=== PATIENT | female | born 1965 | race Caucasian/White ===

== ENCOUNTER 2017-01-26 09:59 | Emergency (ER) | payer BC, MEDICARE ==
--- NOTE | 2017-01-26 10:55 | EDM.PDOC ---
ED HPI GENERAL MEDICAL PROBLEM - General Chief Complaint: Cardiovascular Problem Stated Complaint: FROM CLINIC Time Seen by Provider: 01/26/17 10:47 Source of Information: Reports: Patient History Limitations: Reports: No Limitations - History of Present Illness INITIAL COMMENTS - FREE TEXT/NARRATIVE: Patient is a 51-year-old female who presents to the ER today from [facility] with complaints of left anterior chest pain and elevated blood pressure. She originally made an appointment to be seen in the clinic, but was subsequently sent to the ER for cardiac work up. She reports that for the past week and a half she has had pain in her anterior left chest radiating to her under arm. She describes the pain as tender. Denies any injury to affected area. Denies any shortness of breath. She reports that she does take her blood pressure at home and typically runs in the 170's/90's. She reports she has been taking her medications as prescribed and took her blood pressure medications this morning. She does report she is a high strung person and has had increased stress in her life. She reports she has been feeling very anxious as well. Additionally, she complains of a headache. She does report a history of migraines in the past. She states she has had a headache for the past week and a half as well. She attributes this to her increased stress. Denies any visual changes, weakness, numbness, or tingling. Chest Pain Score (Numeric/FACES): 4 - Related Data Allergies Allergy/AdvReac Type Severity Reaction Status Date / Time Penicillins Allergy Cannot Verified 01/26/17 10:25 Remember Home Meds: Home Meds Temazepam [Restoril] 15 mg PO BEDTIME PRN 06/15/15 [History] Zolpidem [Ambien] 10 mg PO BEDTIME PRN 06/15/15 [History] tiZANidine [Zanaflex] 4 mg PO Q8HR PRN 06/15/15 [History] Acetaminophen [Tylenol] 650 mg PO Q4HR PRN 04/27/16 [History] Benztropine Mesylate 0.5 mg PO DAILY PRN 04/27/16 [History] LORazepam [Ativan] 0.5 mg PO DAILY PRN 04/27/16 [History] Losartan [Cozaar] 25 mg PO DAILY 04/27/16 [History] Potassium Chloride 20 meq PO DAILY 04/27/16 [History] Rosuvastatin Calcium [Crestor] 40 mg PO BEDTIME 04/27/16 [History] Thiothixene 10 mg PO DAILY PRN 04/27/16 [History] amLODIPine [Norvasc] 10 mg PO DAILY 04/27/16 [History] Acetaminophen/HYDROcodone [[place] 325-5 MG] 1 tab PO Q4HR PRN 01/26/17 [History] Diclofenac Sodium [Voltaren 1% Gel] 100 gm TOP TID PRN 01/26/17 [History] Labetalol HCl [Labetalol] 300 mg PO TID 01/26/17 [History] Lidocaine 2% [Xylocaine 2% Jelly] 1 applic TOP TID 01/26/17 [History] Omeprazole 20 mg PO DAILY 01/26/17 [History] Psyllium Husk [Metamucil] 1 tbsp PO DAILY 01/26/17 [History] hydrALAZINE [Apresoline] 50 mg PO 1200 01/26/17 [History] Past Medical History HEENT History: Reports: None, Other (See Below) Other HEENT History: READING GLASSES Cardiovascular History: Reports: High Cholesterol, Hypertension Respiratory History: Reports: None Gastrointestinal History: Reports: None Genitourinary History: Reports: Chronic Renal Insuffiency [employer]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: , 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 Musculoskeletal History: Reports: Back Pain, Chronic Neurological History: Reports: Migraines Psychiatric History: Reports: Anxiety, Bipolar, Depression, Suicide Attempt Endocrine/Metabolic History: Reports: None Hematologic History: Reports: None Immunologic History: Reports: None Oncologic (Cancer) History: Reports: None Dermatologic History: Reports: None - Infectious Disease History Infectious Disease History: Reports: Chicken Pox, Mumps - Past Surgical History Female Surgical History: Reports: Breast Biopsy, Section, Hysterectomy, Salpingo-Oophorectomy Oncologic Surgical History: Reports: Biopsy of Breast Social & Family History - Family History Family Medical History: Noncontributory HEENT: Reports: Cataract Cardiac: Reports: CT Respiratory: Reports: Asthma GI: Reports: None : Reports: Dialysis OBGYN: Reports: None Musculoskeletal: Reports: Arthritis, Osteoporosis Neurological: Reports: CVA Psychiatric: Reports: Bipolar, Depression, Hallucinations Endocrine/Metabolic: Reports: None Hematologic: Reports: None Immunologic: Reports: None Dermatologic: Reports: None Oncologic: Reports: None - Tobacco Use Smoking Status *Q: Never Smoker - Caffeine Use Caffeine Use: Reports: Soda - Recreational Drug Use Recreational Drug Use: No Drug Use in Last 12 Months: No ED ROS GENERAL - Review of Systems Review Of Systems: ROS reveals no pertinent complaints other than HPI. ED EXAM, GENERAL - Physical Exam Exam: See Below Exam Limited By: No Limitations General Appearance: Alert, WD/WN, Anxious, Mild Distress Head: Atraumatic, Normocephalic Neck: Normal Inspection, Supple, Non-Tender, Full Range of Motion Respiratory/Chest: No Respiratory Distress, Lungs Clear, Normal Breath Sounds, No Accessory Muscle Use, Other (tenderness to left anterior chest) Cardiovascular: Normal Peripheral Pulses, Regular Rate, Rhythm, No Edema, No Gallop, No JVD, No Murmur, No Rub Peripheral Pulses: 2+: Dorsalis Pedis (L), Dorsalis Pedis (R) GI/Abdominal: Normal Bowel Sounds, Soft, Non-Tender, No Organomegaly, No Distention, No Abnormal Bruit, No Mass (Female) Exam: Deferred Rectal (Female) Exam: Deferred Back Exam: Normal Inspection, Full Range of Motion, NT Extremities: Normal Inspection, Normal Range of Motion, Non-Tender, Normal Capillary Refill, No Pedal Edema Neurological: Alert, Oriented, CN II-XII Intact, Normal Cognition, Normal Gait, Normal Reflexes, No Motor/Sensory Deficits Psychiatric: Anxious, Tearful Skin Exam: Warm, Dry, Intact, Normal Color, No Rash Lymphatic: No Adenopathy Course - Vital Signs Last Recorded V/S: Last Vital Signs Temp 36.2 C 01/26/17 10:28 Pulse 95 01/26/17 13:27 Resp 20 01/26/17 10:28 BP 142/102 H 01/26/17 13:27 Pulse Ox 98 01/26/17 10:28 - Orders/Labs/Meds Orders: Active Orders 24 hr Category Date Time Status EKG 12 Lead [EKG Documentation Completion] [RC] STAT Care 01/26/17 10:10 Active CULTURE URINE [RM] Stat Lab 01/26/17 11:20 Received Labs: Laboratory Tests 01/26/17 01/26/17 01/26/17 Range/Units 10:20 10:20 10:20 WBC 6.8 (5.0-10.0) 10^3/uL RBC 4.70 (4.2-5.4) 10^6/uL Hgb 15.2 (12.0-16.0) g/dL Hct 44.2 (37.0-47.0) % MCV 94.0 (80-100) fL MCH 32.3 (27.0-34.0) pg MCHC 34.4 (33.0-35.0) g/dL Plt Count 217 (150-450) 10^3/uL Neut % (Auto) 67.5 (42.2-75.2) % Lymph % (Auto) 22.5 (20.5-50.1) % [place] % (Auto) 8.7 H (2-8) % Eos % (Auto) 1.0 (1.0-3.0) % Baso % (Auto) 0.3 (0.0-1.0) % Sodium 139 (135-145) mmol/L Potassium 3.5 L (3.6-5.0) mmol/L Chloride 105 (101-111) mmol/L Carbon Dioxide 23.0 (21.0-31.0) mmol/L Anion Gap 14.5 BUN 11 (7-18) mg/dL Creatinine 1.0 (0.6-1.3) mg/dL Est Cr Clr Drug Dosing 55.06 mL/min Estimated GFR (MDRD) 58 BUN/Creatinine Ratio 11.00 Glucose 97 (74-105) mg/dL Calcium 8.9 (8.4-10.2) mg/dl Total Bilirubin 0.6 (0.2-1.0) mg/dL AST 24 (10-42) IU/L ALT 28 (10-60) IU/L Alkaline Phosphatase 38 L (42-121) IU/L Troponin I (0.00-0.02) ng/ml Total Protein 7.8 (6.7-8.2) g/dl Albumin 4.1 (3.2-5.5) g/dl Globulin 3.7 Albumin/Globulin Ratio 1.11 TSH, Ultra Sensitive 3.55 (0.45-5.33) uIu/mL Urine Color (YELLOW) Urine Appearance (CLEAR) Urine pH (5.0-9.0) Ur Specific White (1.005-1.030) Urine Protein (NEGATIVE) Urine Glucose (UA) (NEGATIVE) Urine Ketones (NEGATIVE) Urine Occult Blood (NEGATIVE) Urine Nitrite (NEGATIVE) Urine Bilirubin (NEGATIVE) Urine Urobilinogen (0.2-1.0) mg/dL Ur Leukocyte Esterase (NEGATIVE) Urine RBC /HPF Urine WBC (0-5/HPF) /HPF Ur Epithelial Cells /HPF Urine Bacteria (0-FEW/HPF) /HPF Urine Mucus /LPF Urine Opiates Screen (NEGATIVE) Ur Oxycodone Screen (NEGATIVE) Urine Methadone Screen (NEGATIVE) Ur Barbiturates Screen (NEGATIVE) U Tricyclic Antidepress (NEGATIVE) Ur Phencyclidine Scrn (NEGATIVE) Ur Amphetamine Screen (NEGATIVE) U Methamphetamines Scrn (NEGATIVE) Urine MDMA Screen (NEGATIVE) U Benzodiazepines Scrn (NEGATIVE) Urine Cocaine Screen (NEGATIVE) U Marijuana (THC) Screen (NEGATIVE) 01/26/17 01/26/17 01/26/17 Range/Units 10:20 11:20 11:20 WBC (5.0-10.0) 10^3/uL RBC (4.2-5.4) 10^6/uL Hgb (12.0-16.0) g/dL Hct (37.0-47.0) % MCV (80-100) fL MCH (27.0-34.0) pg MCHC (33.0-35.0) g/dL Plt Count (150-450) 10^3/uL Neut % (Auto) (42.2-75.2) % Lymph % (Auto) (20.5-50.1) % [place] % (Auto) (2-8) % Eos % (Auto) (1.0-3.0) % Baso % (Auto) (0.0-1.0) % Sodium (135-145) mmol/L Potassium (3.6-5.0) mmol/L Chloride (101-111) mmol/L Carbon Dioxide (21.0-31.0) mmol/L Anion Gap BUN (7-18) mg/dL Creatinine (0.6-1.3) mg/dL Est Cr Clr Drug Dosing mL/min Estimated GFR (MDRD) BUN/Creatinine Ratio Glucose (74-105) mg/dL Calcium (8.4-10.2) mg/dl Total Bilirubin (0.2-1.0) mg/dL AST (10-42) IU/L ALT (10-60) IU/L Alkaline Phosphatase (42-121) IU/L Troponin I < 0.02 (0.00-0.02) ng/ml Total Protein (6.7-8.2) g/dl Albumin (3.2-5.5) g/dl Globulin Albumin/Globulin Ratio TSH, Ultra Sensitive (0.45-5.33) uIu/mL Urine Color Yellow (YELLOW) Urine Appearance Turbid (CLEAR) Urine pH 6.0 (5.0-9.0) Ur Specific White 1.020 (1.005-1.030) Urine Protein Negative (NEGATIVE) Urine Glucose (UA) Negative (NEGATIVE) Urine Ketones Negative (NEGATIVE) Urine Occult Blood Negative (NEGATIVE) Urine Nitrite Negative (NEGATIVE) Urine Bilirubin Negative (NEGATIVE) Urine Urobilinogen 0.2 (0.2-1.0) mg/dL Ur Leukocyte Esterase Trace H (NEGATIVE) Urine RBC 0-5 /HPF Urine WBC 0-5 (0-5/HPF) /HPF Ur Epithelial Cells Many H /HPF Urine Bacteria Many H (0-FEW/HPF) /HPF Urine Mucus Many H /LPF Urine Opiates Screen Positive H (NEGATIVE) Ur Oxycodone Screen Negative (NEGATIVE) Urine Methadone Screen Negative (NEGATIVE) Ur Barbiturates Screen Negative (NEGATIVE) U Tricyclic Antidepress Negative (NEGATIVE) Ur Phencyclidine Scrn Negative (NEGATIVE) Ur Amphetamine Screen Negative (NEGATIVE) U Methamphetamines Scrn Negative (NEGATIVE) Urine MDMA Screen Negative (NEGATIVE) U Benzodiazepines Scrn Positive H (NEGATIVE) Urine Cocaine Screen Negative (NEGATIVE) U Marijuana (THC) Screen Negative (NEGATIVE) Meds: Medications Discontinued Medications Generic Name Dose Route Start Last Admin Trade Name Freq PRN Reason Stop Dose Admin Hydralazine HCl 10 mg 01/26/17 10:59 01/26/17 11:06 Apresoline IVPUSH 01/26/17 11:00 10 mg ONETIME ONE Administration Ketorolac Tromethamine 30 mg 01/26/17 13:00 01/26/17 13:05 Toradol IVPUSH 01/26/17 13:01 Not Given ONETIME ONE Ketorolac Tromethamine 30 mg 01/26/17 13:35 Toradol IVPUSH 01/26/17 13:36 ONETIME ONE Lorazepam 0.5 mg 01/26/17 12:48 01/26/17 13:05 Ativan IVPUSH 01/26/17 12:49 0.5 mg ONETIME ONE Administration Departure - Departure Time of Disposition: 13:48 Disposition: Home, Self-Care 01 Condition: Good Clinical Impression: Hypertensive urgency, Headache, tension-type, Chest pain, non-cardiac Instructions: Hypertension, [id number], Nonspecific Chest Pain, Panic Attacks Forms: ED Department Discharge Care Plan Goals: Discussed labs, xray, and EKG findings with patient. Administered 10 mg hydralazine IV without resolution in elevated blood pressure. Administered 0.5 mg IV Ativan. BP good after. Discussed following up with her primary care provider to address treatment of anxiety and hypertension. Continue current antihypertensive and antianxiety medications as prescribed. Administered 30 mg IV Toradol with improvement in headache. Script sent for Macrobid 100 mg PO BID x 5 days for UTI. Return to clinic if symptoms worsen or do not improve. - My Orders Last 24 Hours: My Active Orders 01/26/17 10:10 EKG 12 Lead [EKG Documentation Completion] [RC] STAT 01/26/17 11:20 CULTURE URINE [RM] Stat - Assessment/Plan Last 24 Hours: My Active Orders 01/26/17 10:10 EKG 12 Lead [EKG Documentation Completion] [RC] STAT 01/26/17 11:20 CULTURE URINE [RM] Stat
[2017-01-26] MEDS ORDERED: hydrALAZINE 20 MG/ML SDV IVPUSH ONE (10:59)
[2017-01-26] MEDS ORDERED: LORazepam 2 MG/ML Syringe IVPUSH ONE (12:48)
[2017-01-26] MEDS ORDERED: Ketorolac 30 MG/ML SDV IVPUSH ONE ×2 (13:00→13:35)
[2017-01-26 13:28] VITALS: BP 142/102
--- NOTE | 2017-01-27 15:11 | EKG ---
01/26/2017 - ALEJANDRA BAKER I reviewed the EKG and agree with the machine's reading. [facility] /[id number]
== END 2017-01-26 14:22 | disposition home or self-care (01) ==
LOC: DL.ED 09:59
DX: I16.0 Hypertensive urgency (principal); I12.9 Hypertensive chronic kidney disease with stage 1 through stage 4 chronic kidney disease, or unspecified chronic kidney disease; N18.9 Chronic kidney disease, unspecified; G44.209 Tension-type headache, unspecified, not intractable; R07.89 Other chest pain; Z88.0 Allergy status to penicillin; Z79.899 Other long term (current) drug therapy; E78.00 Pure hypercholesterolemia, unspecified; F41.9 Anxiety disorder, unspecified; F32.9 Major depressive disorder, single episode, unspecified
CPT/HCPCS: 36415; 71010; 80053; 80305; 81001; 84443; 84484; 85025; 87086; 93005; 96374; 96375; 99284; J0360; J1885; J2060; 93010

== ENCOUNTER 2017-09-25 11:45 | Emergency (ER) | payer MEDICARE ==
--- NOTE | 2017-09-25 12:59 | EDM.PDOC ---
ED HPI GENERAL MEDICAL PROBLEM - General Chief Complaint: Chest Pain Stated Complaint: [id number] HIGH BP SENT FROM CLINIC Time Seen by Provider: 09/25/17 12:20 Source of Information: Reports: Patient, Family, RN, RN Notes Reviewed History Limitations: Reports: No Limitations - History of Present Illness INITIAL COMMENTS - FREE TEXT/NARRATIVE: Patient presents to ER from [facility] with high blood pressure. She has history of hypertension. New blood pressure machine reads high, had clinic check it and sent her to the ER. States taking meds as prescribed Onset: Gradual Duration: Getting Worse Severity: Moderate Improves with: Reports: None Worsens with: Reports: None Associated Symptoms: Reports: No Other Symptoms Right Pain Score (Numeric/FACES): 7 - Related Data Allergies Allergy/AdvReac Type Severity Reaction Status Date / Time Penicillins Allergy Cannot Verified 09/25/17 12:14 Remember Home Meds: Home Meds Temazepam [Restoril] 15 mg PO BEDTIME PRN 06/15/15 [History] Zolpidem [Ambien] 10 mg PO BEDTIME PRN 06/15/15 [History] tiZANidine [Zanaflex] 4 mg PO Q8HR PRN 06/15/15 [History] Acetaminophen [Tylenol] 650 mg PO Q6H PRN 04/27/16 [History] Benztropine Mesylate 0.5 - 1 mg PO DAILY PRN 04/27/16 [History] LORazepam [Ativan] 0.5 mg PO Q6H PRN 04/27/16 [History] Losartan [Cozaar] 50 mg PO BID 04/27/16 [History] Thiothixene 10 mg PO DAILY PRN 04/27/16 [History] amLODIPine [Norvasc] 10 mg PO DAILY 04/27/16 [History] Acetaminophen/HYDROcodone [[place] 325-5 MG] 1 tab PO Q4HR PRN 01/26/17 [History] Diclofenac Sodium [Voltaren 1% Gel] 100 gm TOP TID PRN 01/26/17 [History] Labetalol HCl [Labetalol] 300 mg PO BID 01/26/17 [History] Lidocaine 2% [Xylocaine 2% Jelly] 1 applic TOP TID 01/26/17 [History] Omeprazole 20 mg PO DAILY 01/26/17 [History] Psyllium Husk [Metamucil] 1 tbsp PO DAILY 01/26/17 [History] hydrALAZINE [Apresoline] 50 mg PO 1200 01/26/17 [History] Carvedilol [Coreg] 37.5 mg PO BID 09/25/17 [History] Chlorthalidone 50 mg PO BID 09/25/17 [History] Diclofenac Sodium [Voltaren] 75 mg PO DAILY 09/25/17 [History] Hydrochlorothiazide 50 mg PO BID 09/25/17 [History] Past Medical History HEENT History: Reports: None, Other (See Below) Other HEENT History: READING GLASSES Cardiovascular History: Reports: High Cholesterol, Hypertension Respiratory History: Reports: None Gastrointestinal History: Reports: None Genitourinary History: Reports: Chronic Renal Insuffiency 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: , 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 Musculoskeletal History: Reports: Back Pain, Chronic Neurological History: Reports: Migraines Psychiatric History: Reports: Anxiety, Bipolar, Depression, Suicide Attempt Endocrine/Metabolic History: Reports: None Hematologic History: Reports: None Immunologic History: Reports: None Oncologic (Cancer) History: Reports: None Dermatologic History: Reports: None - Infectious Disease History Infectious Disease History: Reports: Chicken Pox, Mumps - Past Surgical History Female Surgical History: Reports: Breast Biopsy, Section, Hysterectomy, Salpingo-Oophorectomy Oncologic Surgical History: Reports: Biopsy of Breast Social & Family History - Family History Family Medical History: Noncontributory HEENT: Reports: Cataract Cardiac: Reports: [place] Respiratory: Reports: Asthma GI: Reports: None : Reports: Dialysis OBGYN: Reports: None Musculoskeletal: Reports: Arthritis, Osteoporosis Neurological: Reports: CVA Psychiatric: Reports: Bipolar, Depression, Hallucinations Endocrine/Metabolic: Reports: None Hematologic: Reports: None Immunologic: Reports: None Dermatologic: Reports: None Oncologic: Reports: None - Caffeine Use Caffeine Use: Reports: Soda ED ROS GENERAL - Review of Systems Review Of Systems: ROS reveals no pertinent complaints other than HPI. ED EXAM, GENERAL - Physical Exam Exam: See Below Exam Limited By: No Limitations General Appearance: Alert, WD/WN, No Apparent Distress Eye Exam: Bilateral Eye: Normal Inspection Ears: Normal External Exam, Normal Canal, Hearing Grossly Normal, Normal TMs Nose: Normal Inspection, Normal Mucosa, No Blood Throat/Mouth: Normal Inspection, Normal Lips, Normal Teeth, Normal Gums, Normal Oropharynx, Normal Voice, No Airway Compromise Head: Atraumatic, Normocephalic Neck: Normal Inspection, Supple, Non-Tender, Full Range of Motion Respiratory/Chest: No Respiratory Distress, Lungs Clear, Normal Breath Sounds, No Accessory Muscle Use, Chest Non-Tender Cardiovascular: Normal Peripheral Pulses, Regular Rate, Rhythm, No Edema, No Gallop, No JVD, No Murmur, No Rub GI/Abdominal: Normal Bowel Sounds, Soft, Non-Tender, No Organomegaly, No Distention, No Abnormal Bruit, No Mass (Female) Exam: Deferred Rectal (Female) Exam: Deferred Back Exam: Normal Inspection, Full Range of Motion, NT Extremities: Normal Inspection, Normal Range of Motion, Non-Tender, Normal Capillary Refill, No Pedal Edema Neurological: Alert, Oriented, CN II-XII Intact, Normal Cognition, Normal Gait, Normal Reflexes, No Motor/Sensory Deficits Psychiatric: Normal Affect, Normal Mood Skin Exam: Warm, Dry, Intact, Normal Color, No Rash Lymphatic: No Adenopathy EKG INTERPRETATION EKG Date: 09/25/17 Time: 12:05 Rhythm: Other (sinus rhythm) Rate (Beats/Min): 84 [place]: Normal P-Wave: Present QRS: Normal ST-T: Normal QT: Normal Course - Vital Signs Last Recorded V/S: Last Vital Signs Temp 98.6 F 09/25/17 12:00 Pulse 90 09/25/17 12:00 Resp 16 09/25/17 12:00 BP 199/103 H 09/25/17 12:00 Pulse Ox 100 09/25/17 12:00 - Orders/Labs/Meds Orders: Active Orders 24 hr Category Date Time Status EKG 12 Lead [EKG Documentation Completion] [RC] ROUTINE Care 09/25/17 12:14 Active EKG Documentation Completion [RC] STAT Care 09/25/17 12:45 Active UA W/MICROSCOPIC [URIN] Stat Lab 09/25/17 13:05 Ordered Labs: Laboratory Tests 09/25/17 09/25/17 09/25/17 Range/Units 12:55 12:55 13:05 WBC 6.0 (5.0-10.0) 10^3/uL RBC 4.50 (4.2-5.4) 10^6/uL Hgb 14.7 (12.0-16.0) g/dL Hct 42.5 (37.0-47.0) % MCV 94.4 (80-100) fL MCH 32.7 (27.0-34.0) pg MCHC 34.6 (33.0-35.0) g/dL Plt Count 207 (150-450) 10^3/uL Neut % (Auto) 65.2 (42.2-75.2) % Lymph % (Auto) 23.8 (20.5-50.1) % [place] % (Auto) 8.3 H (2-8) % Eos % (Auto) 2.2 (1.0-3.0) % Baso % (Auto) 0.5 (0.0-1.0) % Sodium 138 (135-145) mmol/L Potassium 3.8 (3.6-5.0) mmol/L Chloride 104 (101-111) mmol/L Carbon Dioxide 26.0 (21.0-31.0) mmol/L Anion Gap 11.8 BUN 13 (7-18) mg/dL Creatinine 0.9 (0.6-1.3) mg/dL Est Cr Clr Drug Dosing TNP Estimated GFR (MDRD) > 60 BUN/Creatinine Ratio 14.44 Glucose 87 (74-105) mg/dL Calcium 9.0 (8.4-10.2) mg/dl Total Bilirubin 0.7 (0.2-1.0) mg/dL AST 25 (10-42) IU/L ALT 23 (10-60) IU/L Alkaline Phosphatase 46 (42-121) IU/L Total Protein 8.0 (6.7-8.2) g/dl Albumin 4.4 (3.2-5.5) g/dl Globulin 3.6 Albumin/Globulin Ratio 1.22 Urine Color Yellow (YELLOW) Urine Appearance Clear (CLEAR) Urine pH 7.0 (5.0-9.0) Ur Specific [place] 1.015 (1.005-1.030) Urine Protein Negative (NEGATIVE) Urine Glucose (UA) Negative (NEGATIVE) Urine Ketones Negative (NEGATIVE) Urine Occult Blood Negative (NEGATIVE) Urine Nitrite Negative (NEGATIVE) Urine Bilirubin Negative (NEGATIVE) Urine Urobilinogen 0.2 (0.2-1.0) mg/dL Ur Leukocyte Esterase Negative (NEGATIVE) Urine RBC Not seen /HPF Urine WBC 0-5 (0-5/HPF) /HPF Ur Epithelial Cells Moderate H /HPF Urine Bacteria Moderate H (0-FEW/HPF) /HPF Urine Mucus Rare /LPF - Re-Assessments/Exams Free Text/Narrative Re-Assessment/Exam: 09/25/17 15:[address] Curiel who verified medication regimen and states noncompliance on patient's behalf. He agrees to see patient in outpatient clinic next week. Departure - Departure Time of Disposition: 13:12 Disposition: Home, Self-Care 01 Condition: Fair Clinical Impression: Hypertension Qualifiers: Hypertension type: unspecified Qualified Code(s): I10 - Essential (primary) hypertension Instructions: DASH Eating Plan, Hypertension, [id number] Referrals: Yenifer Bucio MD [Primary Care Provider] - Forms: ED Department Discharge Additional Instructions: Take medications as directed by Dr. Curiel: Labetalol 450mg three times daily Cozaar 50 mg twice daily Chlorthalidone 50mg twice daily You have an appointment scheduled with Dr. Curiel on Tuesday October 03, 2017 at 12: 00pm. Keep a record of your blood pressures for him. Return with any BP readings extremely high - My Orders Last 24 Hours: My Active Orders 09/25/17 12:14 EKG 12 Lead [EKG Documentation Completion] [RC] ROUTINE 09/25/17 12:45 EKG Documentation Completion [RC] STAT 09/25/17 13:05 UA W/MICROSCOPIC [URIN] Stat - Assessment/Plan Last 24 Hours: My Active Orders 09/25/17 12:14 EKG 12 Lead [EKG Documentation Completion] [RC] ROUTINE 09/25/17 12:45 EKG Documentation Completion [RC] STAT 09/25/17 13:05 UA W/MICROSCOPIC [URIN] Stat
[2017-09-25 13:20] LABS: CHLORIDE,CL 104 mmol/L (101-111); SODIUM,NA 138 mmol/L (135-145)
[2017-09-25 13:28] VITALS: BP 199/103
--- NOTE | 2017-09-26 19:20 | EKG ---
09/25/2017 - ALEJANDRA BAKER - FINDINGS: EKG per my reading, shows sinus rhythm at a rate of 84. MOD /[id number]
== END 2017-09-25 13:33 | disposition home or self-care (01) ==
LOC: DL.ED 11:45
DX: I12.9 Hypertensive chronic kidney disease with stage 1 through stage 4 chronic kidney disease, or unspecified chronic kidney disease (principal); N18.9 Chronic kidney disease, unspecified; E78.00 Pure hypercholesterolemia, unspecified; Z88.0 Allergy status to penicillin; Z79.899 Other long term (current) drug therapy
CPT/HCPCS: 36415; 80053; 81001; 85025; 93005; 93010; 99283; 99284

== ENCOUNTER 2019-03-04 09:48 | Emergency (ER) | payer MEDICARE ==
--- NOTE | 2019-03-04 10:19 | EDM.PDOC ---
ED HPI GENERAL MEDICAL PROBLEM - General Chief Complaint: Cardiovascular Problem Stated Complaint: HIGH BP Time Seen by Provider: 03/04/19 10:05 Source of Information: Reports: Patient History Limitations: Reports: No Limitations - History of Present Illness INITIAL COMMENTS - FREE TEXT/NARRATIVE: This 53 yo female patient reports to the ED with elevated blood pressure and a headache. The patient reports her headache started 2 days ago and has continued. The patient reports she has taken her medications as prescribed and also took Tylenol this morning for her headache. The patient reports no improvement from the Tylenol. The patient has an appointment with her primary care facility tomorrow, but did not want to wait that long. The patient reports she did take 1 of her Labetalol, but did not take her water pill today. The patient reports she does not take her water pill every day, because she reports she is "wired wrong." The patient reports she can not take ibuprofen due to chronic kidney disease. Onset Date: 03/02/19 Duration: Constant Location: Reports: Head (posterior headache), Other (high blood pressure) Quality: Reports: Other Severity: Severe Improves with: Reports: None Worsens with: Reports: None Context: Reports: Other Associated Symptoms: Reports: Headaches Chest Pain Score (Numeric/FACES): 4 - Related Data Allergies Allergy/AdvReac Type Severity Reaction Status Date / Time Penicillins Allergy Cannot Verified 09/25/17 12:14 Remember Home Meds: Home Meds Temazepam [Restoril] 15 mg PO BEDTIME PRN 06/15/15 [History] Zolpidem [Ambien] 10 mg PO BEDTIME PRN 06/15/15 [History] tiZANidine [Zanaflex] 4 mg PO Q8HR PRN 06/15/15 [History] Acetaminophen [Tylenol] 650 mg PO Q6H PRN 04/27/16 [History] Benztropine Mesylate 0.5 - 1 mg PO DAILY PRN 04/27/16 [History] LORazepam [Ativan] 0.5 mg PO Q6H PRN 04/27/16 [History] Losartan [Cozaar] 50 mg PO BID 04/27/16 [History] Thiothixene 10 mg PO DAILY PRN 04/27/16 [History] amLODIPine [Norvasc] 10 mg PO DAILY 04/27/16 [History] Acetaminophen/HYDROcodone [Spencer 325-5 MG] 1 tab PO Q4HR PRN 01/26/17 [History] Diclofenac Sodium [Voltaren 1% Gel] 100 gm TOP TID PRN 01/26/17 [History] Labetalol HCl [Labetalol] 300 mg PO BID 01/26/17 [History] Lidocaine 2% [Xylocaine 2% Jelly] 1 applic TOP TID 01/26/17 [History] Omeprazole 20 mg PO DAILY 01/26/17 [History] Psyllium Husk [Metamucil] 1 tbsp PO DAILY 01/26/17 [History] hydrALAZINE [Apresoline] 50 mg PO 1200 01/26/17 [History] Carvedilol [Coreg] 37.5 mg PO BID 09/25/17 [History] Chlorthalidone 50 mg PO BID 09/25/17 [History] Diclofenac Sodium [Voltaren] 75 mg PO DAILY 09/25/17 [History] hydroCHLOROthiazide [Hydrochlorothiazide] 50 mg PO BID 09/25/17 [History] Past Medical History HEENT History: Reports: None, Other (See Below) Other HEENT History: READING GLASSES Cardiovascular History: Reports: High Cholesterol, Hypertension Respiratory History: Reports: None Gastrointestinal History: Reports: None Genitourinary History: Reports: Chronic Renal Insuffiency 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: , 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 Musculoskeletal History: Reports: Back Pain, Chronic Neurological History: Reports: Migraines Psychiatric History: Reports: Anxiety, Bipolar, Depression, Suicide Attempt Endocrine/Metabolic History: Reports: None Hematologic History: Reports: None Immunologic History: Reports: None Oncologic (Cancer) History: Reports: None Dermatologic History: Reports: None - Infectious Disease History Infectious Disease History: Reports: Chicken Pox, Mumps - Past Surgical History Female Surgical History: Reports: Breast Biopsy, Section, Hysterectomy, Salpingo-Oophorectomy Oncologic Surgical History: Reports: Biopsy of Breast Social & Family History - Family History Family Medical History: Noncontributory HEENT: Reports: Cataract Cardiac: Reports: NM Respiratory: Reports: Asthma GI: Reports: None : Reports: Dialysis OBGYN: Reports: None Musculoskeletal: Reports: Arthritis, Osteoporosis Neurological: Reports: CVA Psychiatric: Reports: Bipolar, Depression, Hallucinations Endocrine/Metabolic: Reports: None Hematologic: Reports: None Immunologic: Reports: None Dermatologic: Reports: None Oncologic: Reports: None - Caffeine Use Caffeine Use: Reports: Soda ED ROS GENERAL - Review of Systems Review Of Systems: ROS reveals no pertinent complaints other than HPI. ED EXAM, GENERAL - Physical Exam Exam: See Below Exam Limited By: No Limitations General Appearance: Alert, WD/WN, Moderate Distress Eye Exam: Bilateral Eye: EOMI, Normal Inspection, PERRL Ears: Normal External Exam, Normal Canal, Hearing Grossly Normal, Normal TMs Nose: Normal Inspection, Normal Mucosa, No Blood Throat/Mouth: Normal Inspection, Normal Lips, Normal Teeth, Normal Gums, Normal Oropharynx, Normal Voice, No Airway Compromise Head: Atraumatic, Normocephalic Neck: Normal Inspection, Supple, Non-Tender, Full Range of Motion Respiratory/Chest: No Respiratory Distress, Lungs Clear, Normal Breath Sounds, No Accessory Muscle Use, Chest Non-Tender Cardiovascular: Normal Peripheral Pulses, Regular Rate, Rhythm, No Edema, No Gallop, No JVD, No Murmur, No Rub GI/Abdominal: Normal Bowel Sounds, Soft, Non-Tender, No Organomegaly, No Distention, No Abnormal Bruit, No Mass (Female) Exam: Deferred Rectal (Female) Exam: Deferred Back Exam: Normal Inspection, Full Range of Motion, NT Extremities: Normal Inspection, Normal Range of Motion, Non-Tender, Normal Capillary Refill, No Pedal Edema Neurological: Alert, Oriented, CN II-XII Intact, Normal Cognition, Normal Gait, Normal Reflexes, No Motor/Sensory Deficits Psychiatric: Normal Affect, Normal Mood Skin Exam: Warm, Dry, Intact, Normal Color, No Rash Lymphatic: No Adenopathy Course - Vital Signs Last Recorded V/S: Last Vital Signs Temp 36.2 C 03/04/19 10:20 Pulse 85 03/04/19 10:20 Resp 18 03/04/19 10:20 BP 223/110 H 03/04/19 10:20 Pulse Ox 99 03/04/19 10:20 - Orders/Labs/Meds Orders: Active Orders 24 hr Category Date Time Status EKG Documentation Completion [RC] URGENT Care 03/04/19 10:05 Active Chest 1V Frontal [CR] Urgent Exams 03/04/19 10:05 Taken Labs: Laboratory Tests 03/04/19 03/04/19 Range/Units 10:15 10:15 WBC 6.1 (5.0-10.0) 10^3/uL RBC 5.02 (4.2-5.4) 10^6/uL Hgb 15.7 (12.0-16.0) g/dL Hct 45.8 (37.0-47.0) % MCV 91.2 D (80-100) fL MCH 31.3 (27.0-34.0) pg MCHC 34.3 (33.0-35.0) g/dL Plt Count 258 (150-450) 10^3/uL Neut % (Auto) 59.1 (42.2-75.2) % Lymph % (Auto) 31.4 (20.5-50.1) % [place] % (Auto) 7.7 (2-8) % Eos % (Auto) 1.5 (1.0-3.0) % Baso % (Auto) 0.3 (0.0-1.0) % Sodium 138 (135-145) mmol/L Potassium 3.4 L (3.6-5.0) mmol/L Chloride 105 (101-111) mmol/L Carbon Dioxide 24.0 (21.0-31.0) mmol/L Anion Gap 12.4 BUN 21 H (7-18) mg/dL Creatinine 0.8 (0.6-1.3) mg/dL Est Cr Clr Drug Dosing TNP Estimated GFR (MDRD) > 60 BUN/Creatinine Ratio 26.25 Glucose 100 (74-105) mg/dL Calcium 9.4 (8.4-10.2) mg/dl Total Bilirubin 0.8 (0.2-1.0) mg/dL AST 26 (10-42) IU/L ALT 36 (10-60) IU/L Alkaline Phosphatase 56 (42-121) IU/L Troponin I < 0.02 (0.00-0.02) ng/ml Total Protein 8.3 H (6.7-8.2) g/dl Albumin 4.3 (3.2-5.5) g/dl Globulin 4.0 Albumin/Globulin Ratio 1.08 Meds: Medications Discontinued Medications Generic Name Dose Route Start Last Admin Trade Name Freq PRN Reason Stop Dose Admin Hydromorphone HCl 0.5 mg 03/04/19 12:12 03/04/19 12:16 Dilaudid IVPUSH 03/04/19 12:13 0.5 mg ONETIME ONE Administration Hydromorphone HCl 0.5 mg 03/04/19 12:48 03/04/19 12:53 Dilaudid IVPUSH 03/04/19 12:49 0.5 mg ONETIME ONE Administration Labetalol HCl 20 mg 03/04/19 10:57 03/04/19 11:08 Normodyne IVPUSH 03/04/19 10:58 20 mg ONETIME ONE Administration Protocol Lorazepam 1 mg 03/04/19 13:35 03/04/19 13:43 Ativan IVPUSH 03/04/19 13:36 1 mg ONETIME ONE Administration - Re-Assessments/Exams Free Text/Narrative Re-Assessment/Exam: 03/04/19 11:04 The patient was advised of the lab results. Further review of the patient's prescriptions revealed that the patient was supposed to be taking 2 pills of labetalol 3 times per day. When the patient was advised of that, the patient reported that her had set up her pills and may have done it wrong. The patient reported increased concerns about her headache. 03/04/19 12:48 The patient reports her pain went from a 10/10 to a 9/10 after the first dose of Dilaudid. A second dose was ordered. Departure - Departure Time of Disposition: 14:12 Disposition: Home, Self-Care 01 Condition: Fair Clinical Impression: Hypertensive urgency, Anxiety about health Headache, tension-type Qualifiers: Headache chronicity pattern: acute headache Intractability: intractable Qualified Code(s): G44.201 - Tension-type headache, unspecified, intractable Instructions: Hypertension, [id number], General Headache Without Cause, Easy- to-Read, Living With Anxiety Forms: ED Department Discharge Care Plan Goals: The patient was advised of the examination and lab results during the visit. The patient was given IV Labetolol for her high blood pressure, IV Dilaudid for her headache and IV Ativan for her anxiety during the visit. The patient was encouraged to continue to take her prescribed medications as directed. If the patient has any additional symptoms or concerns, the patient should either return to the emergency department or visit her primary care facility. - My Orders Last 24 Hours: My Active Orders 03/04/19 10:05 EKG Documentation Completion [RC] URGENT Chest 1V Frontal [CR] Urgent - Assessment/Plan Last 24 Hours: My Active Orders 03/04/19 10:05 EKG Documentation Completion [RC] URGENT Chest 1V Frontal [CR] Urgent
[2019-03-04 10:42] LABS: ANION GAP 12.4; CHLORIDE,CL 105 mmol/L (101-111); SODIUM,NA 138 mmol/L (135-145)
[2019-03-04 10:50] VITALS: BP 223/110; PULSE 85
[2019-03-04] MEDS ORDERED: Labetalol 100 MG/20 ML MDV IVPUSH ONE (10:57)
[2019-03-04] MEDS ORDERED: HYDROmorphone 1 MG/ML Syringe IVPUSH ONE ×2 (12:12→12:48)
[2019-03-04] MEDS ORDERED: LORazepam 2 MG/ML Syringe IVPUSH ONE (13:35)
== END 2019-03-04 14:23 | disposition home or self-care (01) ==
LOC: DL.ED 09:48
DX: I16.0 Hypertensive urgency (principal); F41.9 Anxiety disorder, unspecified; G44.301 Post-traumatic headache, unspecified, intractable; I12.9 Hypertensive chronic kidney disease with stage 1 through stage 4 chronic kidney disease, or unspecified chronic kidney disease; N18.9 Chronic kidney disease, unspecified; F32.9 Major depressive disorder, single episode, unspecified; Z88.0 Allergy status to penicillin; Z79.899 Other long term (current) drug therapy
CPT/HCPCS: 36415; 71045; 80053; 84484; 85025; 93005; 96374; 96375; 96376; 99285; J1170; J2060; J3490; 99283

== ENCOUNTER 2019-06-25 15:27 | Emergency (ER) | payer MEDICAID, MEDICARE ==
--- NOTE | 2019-06-25 16:23 | CR ---
EXAMINATION: Chest 2V SEX: Female AGE: 54 years CLINICAL HISTORY: 54-year-old female who presents in the emergency department with CHEST PAIN. INTERPRETATION: 1. External clinical appeals specialist leads. 2. Normal cardiac silhouette without pulmonary vascular congestion cephalization of flow alveolar edema or dependent pleural effusion. 3. No lung mass, hilar lymphadenopathy or focal lobar pneumonia. 4. No atelectasis/collapse. 5. No pneumothorax. CONCLUSION: No acute cardiopulmonary abnormality i.e. radiographically unchanged except for technique (PA versus AP) since 04 March 2019 comparison exam.
--- NOTE | 2019-06-25 16:36 | EDM.PDOC ---
<Aiden Lepe - Last Filed: 06/25/19 17:09> ED HPI GENERAL MEDICAL PROBLEM - General Chief Complaint: Chest Pain Stated Complaint: PAIN IN NECK AND CHEST Time Seen by Provider: 06/25/19 16:20 Source of Information: Reports: Patient, RN, RN Notes Reviewed History Limitations: Reports: No Limitations - History of Present Illness INITIAL COMMENTS - FREE TEXT/NARRATIVE: Patient presents to ED with complaints of chest pain that radiates to her left neck and left side X 3 days. Pain is constant and has gotten worse today. She cannot take deep breaths without the pain getting worse. She has not experienced this pain before. Pain can be recreated with palpation to left sternal border, left side of chest and neck. She states she has chronic kidney disease and has done dialysis in the past and thinks she may need to start again soon. She has a strong family history of cardiac events at young ages with both parents and her sister. Patient denies N/V, headache, dizziness. Duration: Day(s): (3 days), Constant Location: Reports: Neck, Chest Quality: Reports: Ache, Sharp Severity: Moderate Improves with: Reports: Immobilization Worsens with: Reports: Breathing (deep breaths), Movement Associated Symptoms: Reports: Chest Pain. Denies: Cough, Fever/Chills, Headaches, Nausea/Vomiting, Shortness of Breath, Syncope, Weakness - Related Data Allergies Allergy/AdvReac Type Severity Reaction Status Date / Time Penicillins Allergy Cannot Verified 09/25/17 12:14 Remember Home Meds: Home Meds Temazepam [Restoril] 15 mg PO BEDTIME PRN 06/15/15 [History] Zolpidem [Ambien] 10 mg PO BEDTIME PRN 06/15/15 [History] tiZANidine [Zanaflex] 4 mg PO Q8HR PRN 06/15/15 [History] Acetaminophen [Tylenol] 650 mg PO Q6H PRN 04/27/16 [History] Benztropine Mesylate 0.5 - 1 mg PO DAILY PRN 04/27/16 [History] LORazepam [Ativan] 0.5 mg PO Q6H PRN 04/27/16 [History] Losartan [Cozaar] 50 mg PO BID 04/27/16 [History] Thiothixene 10 mg PO DAILY PRN 04/27/16 [History] amLODIPine [Norvasc] 10 mg PO DAILY 04/27/16 [History] Acetaminophen/HYDROcodone [Bangs 325-5 MG] 1 tab PO Q4HR PRN 01/26/17 [History] Diclofenac Sodium [Voltaren 1% Gel] 100 gm TOP TID PRN 01/26/17 [History] Labetalol HCl [Labetalol] 300 mg PO BID 01/26/17 [History] Lidocaine 2% [Xylocaine 2% Jelly] 1 applic TOP TID 01/26/17 [History] Omeprazole 20 mg PO DAILY 01/26/17 [History] Psyllium Husk [Metamucil] 1 tbsp PO DAILY 01/26/17 [History] hydrALAZINE [Apresoline] 50 mg PO 1200 01/26/17 [History] Chlorthalidone 50 mg PO BID 09/25/17 [History] Diclofenac Sodium [Voltaren] 75 mg PO DAILY 09/25/17 [History] carvediloL [Coreg] 37.5 mg PO BID 09/25/17 [History] hydroCHLOROthiazide [Hydrochlorothiazide] 50 mg PO BID 09/25/17 [History] Past Medical History HEENT History: Reports: None, Other (See Below) Other HEENT History: READING GLASSES Cardiovascular History: Reports: High Cholesterol, Hypertension Respiratory History: Reports: None Gastrointestinal History: Reports: None Genitourinary History: Reports: Chronic Renal Insuffiency 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: , 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 Musculoskeletal History: Reports: Back Pain, Chronic Neurological History: Reports: Migraines Psychiatric History: Reports: Anxiety, Bipolar, Depression, Suicide Attempt Endocrine/Metabolic History: Reports: None Hematologic History: Reports: None Immunologic History: Reports: None Oncologic (Cancer) History: Reports: None Dermatologic History: Reports: None - Infectious Disease History Infectious Disease History: Reports: Chicken Pox, Mumps - Past Surgical History Female Surgical History: Reports: Breast Biopsy, Section, Hysterectomy, Salpingo-Oophorectomy Oncologic Surgical History: Reports: Biopsy of Breast Social & Family History - Family History Family Medical History: Noncontributory HEENT: Reports: Cataract Cardiac: Reports: [place] Respiratory: Reports: Asthma GI: Reports: None : Reports: Dialysis OBGYN: Reports: None Musculoskeletal: Reports: Arthritis, Osteoporosis Neurological: Reports: CVA Psychiatric: Reports: Bipolar, Depression, Hallucinations Endocrine/Metabolic: Reports: None Hematologic: Reports: None Immunologic: Reports: None Dermatologic: Reports: None Oncologic: Reports: None - Caffeine Use Caffeine Use: Reports: Soda ED ROS GENERAL - Review of Systems Review Of Systems: Comprehensive ROS is negative, except as noted in HPI. ED EXAM, GENERAL - Physical Exam Exam: See Below Exam Limited By: No Limitations General Appearance: Alert, WD/WN, Moderate Distress Neck: Normal Inspection, Supple, Non-Tender, Full Range of Motion Respiratory/Chest: No Respiratory Distress, Lungs Clear, Normal Breath Sounds, No Accessory Muscle Use, Other (chest wall tenderness with palpation along left sternal border and left side). No: Chest Non-Tender, Crackles, Rales, Wheezing Cardiovascular: Normal Peripheral Pulses, Regular Rate, Rhythm, No Edema, No Gallop, No JVD, No Murmur, No Rub Peripheral Pulses: 2+: Carotid (L), Carotid (R), Radial (L), Radial (R) GI/Abdominal: Normal Bowel Sounds, Soft, Non-Tender, No Organomegaly, No Distention, No Abnormal Bruit, No Mass (Female) Exam: Deferred Rectal (Female) Exam: Deferred Back Exam: Normal Inspection, Full Range of Motion, NT Extremities: Normal Inspection, Normal Range of Motion, Non-Tender, Normal Capillary Refill, No Pedal Edema Neurological: Alert, Oriented, CN II-XII Intact, Normal Cognition, Normal Gait, Normal Reflexes, No Motor/Sensory Deficits Psychiatric: Normal Affect, Normal Mood Skin Exam: Warm, Dry, Intact, Normal Color, No Rash Course - Vital Signs Last Recorded V/S: Last Vital Signs Temp 37.0 C 06/25/19 16:00 Pulse 89 06/25/19 16:00 Resp 18 06/25/19 16:00 BP 228/136 H 06/25/19 17:31 Pulse Ox 99 06/25/19 16:00 - Orders/Labs/Meds Orders: Active Orders 24 hr Category Date Time Status EKG 12 Lead [EKG Documentation Completion] [RC] STAT Care 06/25/19 16:13 Active Heparin Sodium/0.45% NaCl [Heparin 25,000 Units in 1/2 Med 06/25/19 18:07 Ordered NS 500 ML] 25,000 units in 500 ml IV ONETIME Nitroglycerin/D5W [Nitroglycerin 25 MG/D5W 250 ML] Med 06/25/19 18:15 Ordered 25 mg in 250 ml IV TITRATE Medication Orders Nitroglycerin/Dextrose (Nitroglycerin 25 Mg/D5w 250 Ml) 25 mg in 250 mls @ 3 mls/hr IV TITRATE NICK; Protocol Heparin Sodium/Sodium Chloride (Heparin 25,000 Units In 1/2 Ns 500 Ml) 25,000 units in 500 mls @ 19.726 mls/hr IV ONETIME ONE Stop: 06/26/19 19:27 Labs: Laboratory Tests 06/25/19 06/25/19 06/25/19 Range/Units 16:16 16:16 16:16 WBC 8.6 (5.0-10.0) 10^3/uL RBC 4.89 (4.2-5.4) 10^6/uL Hgb 15.7 (12.0-16.0) g/dL Hct 45.0 (37.0-47.0) % MCV 92.0 (80-100) fL MCH 32.1 (27.0-34.0) pg MCHC 34.9 (33.0-35.0) g/dL Plt Count 265 (150-450) 10^3/uL Neut % (Auto) 68.5 (42.2-75.2) % Lymph % (Auto) 23.2 (20.5-50.1) % [place] % (Auto) 7.0 (2-8) % Eos % (Auto) 1.1 (1.0-3.0) % Baso % (Auto) 0.2 (0.0-1.0) % PT (9.0-12.0) SEC INR (0.9-1.2) Sodium 140 (135-145) mmol/L Potassium 3.2 L (3.6-5.0) mmol/L Chloride 106 (101-111) mmol/L Carbon Dioxide 24.0 (21.0-31.0) mmol/L Anion Gap 13.2 BUN 16 (7-18) mg/dL Creatinine 0.9 (0.6-1.3) mg/dL Est Cr Clr Drug Dosing TNP Estimated GFR (MDRD) > 60 BUN/Creatinine Ratio 17.77 Glucose 98 (74-105) mg/dL Calcium 9.2 (8.4-10.2) mg/dl Total Bilirubin 0.5 (0.2-1.0) mg/dL AST 19 (10-42) IU/L ALT 30 (10-60) IU/L Alkaline Phosphatase 61 (42-121) IU/L Troponin I 0.03 H* (0.00-0.02) ng/ml C-Reactive Protein < 0.5 (0.0-1.3) mg/dL Total Protein 8.1 (6.7-8.2) g/dl Albumin 4.4 (3.2-5.5) g/dl Globulin 3.7 Albumin/Globulin Ratio 1.19 Amylase 72 (28-100) U/L Lipase 38 (22-51) U/L 06/25/19 Range/Units 16:16 WBC (5.0-10.0) 10^3/uL RBC (4.2-5.4) 10^6/uL Hgb (12.0-16.0) g/dL Hct (37.0-47.0) % MCV (80-100) fL MCH (27.0-34.0) pg MCHC (33.0-35.0) g/dL Plt Count (150-450) 10^3/uL Neut % (Auto) (42.2-75.2) % Lymph % (Auto) (20.5-50.1) % [place] % (Auto) (2-8) % Eos % (Auto) (1.0-3.0) % Baso % (Auto) (0.0-1.0) % PT 10.1 (9.0-12.0) SEC INR 1.0 (0.9-1.2) Sodium (135-145) mmol/L Potassium (3.6-5.0) mmol/L Chloride (101-111) mmol/L Carbon Dioxide (21.0-31.0) mmol/L Anion Gap BUN (7-18) mg/dL Creatinine (0.6-1.3) mg/dL Est Cr Clr Drug Dosing Estimated GFR (MDRD) BUN/Creatinine Ratio Glucose (74-105) mg/dL Calcium (8.4-10.2) mg/dl Total Bilirubin (0.2-1.0) mg/dL AST (10-42) IU/L ALT (10-60) IU/L Alkaline Phosphatase (42-121) IU/L Troponin I (0.00-0.02) ng/ml C-Reactive Protein (0.0-1.3) mg/dL Total Protein (6.7-8.2) g/dl Albumin (3.2-5.5) g/dl Globulin Albumin/Globulin Ratio Amylase (28-100) U/L Lipase (22-51) U/L Meds: Medications Generic Name Dose Route Start Last Admin Trade Name Freq PRN Reason Stop Dose Admin Nitroglycerin/Dextrose 25 mg in 250 mls @ 3 mls/hr 06/25/19 18:15 Nitroglycerin 25 Mg/D5w 250 Ml IV TITRATE NICK Protocol 5 MCG/MIN Heparin Sodium/Sodium Chloride 25,000 units in 500 mls @ 19.726 mls/hr 18:07 Heparin 25,000 Units In 1/2 Ns 500 Ml IV 06/26/19 19:27 ONETIME ONE 12 UNITS/KG/HR Discontinued Medications Generic Name Dose Route Start Last Admin Trade Name Freq PRN Reason Stop Dose Admin Aspirin 324 mg 06/25/19 17:17 06/25/19 17:23 Aspirin PO 06/25/19 17:18 324 mg ONETIME ONE Administration Lorazepam 0.5 mg 06/25/19 18:09 Ativan IVPUSH 06/25/19 18:10 ONETIME ONE Morphine Sulfate 2 mg 06/25/19 17:45 Morphine IVPUSH 06/25/19 17:46 ONETIME ONE Nitroglycerin 0.4 mg 06/25/19 17:17 06/25/19 17:31 Nitrostat SL 06/25/19 17:18 0.4 mg ONETIME ONE Administration Departure - Departure Disposition: DC/Tfer to Acute Hospital 02 Clinical Impression: Elevated troponin I level, NSTEMI (non-ST elevated myocardial infarction) Hypertension Qualifiers: Hypertension type: unspecified Qualified Code(s): I10 - Essential (primary) hypertension Forms: Interfacility Transfer EMTALA Care Plan Goals: Discussed the history, examination, lab, EKG and treatments with Dr Garcia ( [facility]). Dr. Garcia accepted the patient for continued evaluation and management. Dr. Garcia recommended the patient be flown to [place]. The patient will be transported by [facility]. Sepsis Event Note - Focused Exam Vital Signs: Vital Signs Temp Pulse Resp BP BP Pulse Ox 06/25/19 17:31 228/136 H 06/25/19 16:00 37.0 C 89 18 216/112 H 99 Date Exam was Performed: 06/25/19 Time Exam was Performed: 17:09 - My Orders Last 24 Hours: My Active Orders 06/25/19 16:13 EKG 12 Lead [EKG Documentation Completion] [RC] STAT 06/25/19 18:07 Heparin Sodium/0.45% NaCl [Heparin 25,000 Units in 1/2 NS 500 ML] 25,000 units in 500 ml IV ONETIME 06/25/19 18:15 Nitroglycerin/D5W [Nitroglycerin 25 MG/D5W 250 ML] 25 mg in 250 ml IV TITRATE - Assessment/Plan Last 24 Hours: My Active Orders 06/25/19 16:13 EKG 12 Lead [EKG Documentation Completion] [RC] STAT 06/25/19 18:07 Heparin Sodium/0.45% NaCl [Heparin 25,000 Units in 1/2 NS 500 ML] 25,000 units in 500 ml IV ONETIME 06/25/19 18:15 Nitroglycerin/D5W [Nitroglycerin 25 MG/D5W 250 ML] 25 mg in 250 ml IV TITRATE <Casey Contreras M - Last Filed: 06/25/19 18:26> Departure - Departure Time of Disposition: 18:16 Reason for Transfer *Q: Other Condition: Serious Sepsis Event Note - Focused Exam Date Exam was Performed: 06/25/19 Time Exam was Performed: 18:16
[2019-06-25 16:58] LABS: ANION GAP 13.2; CHLORIDE,CL 106 mmol/L (101-111); SODIUM,NA 140 mmol/L (135-145)
[2019-06-25 17:08] VITALS: PULSE 89
[2019-06-25] MEDS: Aspirin 81 MG Tab.Chew PO ONE (17:23)
[2019-06-25 17:31] VITALS: BP 228/136
[2019-06-25] MEDS: Nitroglycerin 0.4 MG Tab.SL SL ONE (17:31)
[2019-06-25] MEDS: LORazepam 2 MG/ML SDV IVPUSH ONE (18:18)
[2019-06-25] MEDS: Heparin Sodium/0.45% NaCl 25,000 UNITS/500 ML BAG IV ONE (18:19)
[2019-06-25] MEDS: Morphine 2 MG/ML Syringe IVPUSH ONE (18:20)
[2019-06-25] MEDS: Nitroglycerin/D5W 25 MG/250 ML BOTTLE IV SCH (18:21)
== END 2019-06-25 18:47 ==
LOC: DL.ED 15:27
DX: I21.4 Non-ST elevation (NSTEMI) myocardial infarction (principal); I12.9 Hypertensive chronic kidney disease with stage 1 through stage 4 chronic kidney disease, or unspecified chronic kidney disease; N18.9 Chronic kidney disease, unspecified; R79.89 Other specified abnormal findings of blood chemistry; F41.9 Anxiety disorder, unspecified; F31.9 Bipolar disorder, unspecified; Z88.0 Allergy status to penicillin; Z79.899 Other long term (current) drug therapy
CPT/HCPCS: 36415; 71046; 80053; 82150; 83690; 84484; 85025; 85610; 86140; 93005; 96365; 96368; 96375; 99285-25; A9270-GY; J1644; J2060; J2270; J3490

== ENCOUNTER 2020-05-23 09:21 | Emergency (ER) | payer MEDICARE, MEDICAID ==
[2020-05-23 09:35] VITALS: BP 143/90; PULSE 86
[2020-05-23 10:17] LABS: ANION GAP 14.8 mEq/L (7-13)
--- NOTE | 2020-05-23 10:23 | EDM.PDOC ---
ED HPI GENERAL MEDICAL PROBLEM - General Chief Complaint: Abdominal Pain Stated Complaint: LOWER BACK PAIN, KIDNEY PAIN Time Seen by Provider: 05/23/20 09:54 Source of Information: Reports: Patient, RN, RN Notes Reviewed History Limitations: Reports: No Limitations - History of Present Illness INITIAL COMMENTS - FREE TEXT/NARRATIVE: Patient is a 54-year-old female who presents to the ER with complaint of low back pain/flank pain. Patient states it has been going on for the past week. States she has used pain meds that she has been prescribed with minimal help. States she only gets 5 for 14 days, so has to use sparingly. States history kidney failure from half-way hypertension. Denies new injury, heavy lifting. Denies fever, chills, nausea, vomiting or diarrhea. Denies chest pain. States some shortness of breath, but feels this is attributed to 20 pound weight gain over 6 months. Admits to "some" frequency, urgency, burning with urination. Denies numbness or tingling. Denies saddle anesthesia. Denies incontinence of bowel or bladder. Onset: Gradual Duration: Getting Worse Location: Reports: Back (/flank) Quality: Reports: Ache Severity: Moderate Improves with: Reports: None Worsens with: Reports: None Associated Symptoms: Reports: No Other Symptoms - Related Data Allergies Allergy/AdvReac Type Severity Reaction Status Date / Time Penicillins Allergy Cannot Verified 07/16/19 09:09 Remember Home Meds: Home Meds Temazepam [Restoril] 15 mg PO BEDTIME PRN 06/15/15 [History] Zolpidem [Ambien] 10 mg PO BEDTIME PRN 06/15/15 [History] Acetaminophen [Tylenol] 650 mg PO Q6H PRN 04/27/16 [History] LORazepam [Ativan] 1 mg PO Q8HR PRN 04/27/16 [History] amLODIPine [Norvasc] 10 mg PO DAILY 04/27/16 [History] Labetalol HCl [Labetalol] 200 mg PO TID 01/26/17 [History] Chlorthalidone 25 mg PO BID 09/25/17 [History] Hydrocodone/Acetaminophen [Hydrocodone-Acetamin 5-325 mg] 1 tab PO DAILY PRN 07/16/19 [History] carisoprodoL [Carisoprodol] 350 mg PO TID PRN 07/16/19 [History] ARIPiprazole [Abilify] 15 mg PO DAILY 07/17/19 [History] Aspirin [Lo-Dose Aspirin EC] 81 mg PO DAILY 07/17/19 [History] Montelukast [Singulair] 10 ng PO DAILY 07/17/19 [History] Potassium Chloride [Klor-Con 10] 10 meq PO DAILY 07/17/19 [History] cloNIDine [Catapres] 0.1 mg PO BID 07/17/19 [History] Past Medical History HEENT History: Reports: None, Other (See Below) Other HEENT History: READING GLASSES Cardiovascular History: Reports: High Cholesterol, Hypertension Respiratory History: Reports: None Gastrointestinal History: Reports: None Genitourinary History: Reports: Chronic Renal Insuffiency 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: , 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 Musculoskeletal History: Reports: Back Pain, Chronic Neurological History: Reports: Migraines Psychiatric History: Reports: Anxiety, Bipolar, Depression, Suicide Attempt Endocrine/Metabolic History: Reports: None Hematologic History: Reports: None Immunologic History: Reports: None Oncologic (Cancer) History: Reports: None Dermatologic History: Reports: None - Infectious Disease History Infectious Disease History: Reports: Chicken Pox, Mumps - Past Surgical History Head Surgeries/Procedures: Reports: None HEENT Surgical History: Reports: None Cardiovascular Surgical History: Reports: None Respiratory Surgical History: Reports: None GI Surgical History: Reports: Colonoscopy Female Surgical History: Reports: Breast Biopsy, Section, Hysterectomy, Salpingo-Oophorectomy Neurological Surgical History: Reports: None Musculoskeletal Surgical History: Reports: None Oncologic Surgical History: Reports: Biopsy of Breast Dermatological Surgical History: Reports: None Social & Family History - Family History Family Medical History: No Pertinent Family History HEENT: Reports: Cataract Cardiac: Reports: OK Respiratory: Reports: Asthma GI: Reports: None : Reports: Dialysis OBGYN: Reports: None Musculoskeletal: Reports: Arthritis, Osteoporosis Neurological: Reports: CVA Psychiatric: Reports: Bipolar, Depression, Hallucinations Endocrine/Metabolic: Reports: None Hematologic: Reports: None Immunologic: Reports: None Dermatologic: Reports: None Oncologic: Reports: None - Tobacco Use Tobacco Use Status *Q: Never Tobacco User - Caffeine Use Caffeine Use: Reports: None - Recreational Drug Use Recreational Drug Use: No ED ROS GENERAL - Review of Systems Review Of Systems: Comprehensive ROS is negative, except as noted in HPI. ED EXAM,LOWER BACK PAIN/INJURY - Physical Exam Exam: See Below Exam Limited By: No Limitations General Appearance: Alert, WD/WN, No Apparent Distress Eye Exam: Bilateral Eye: EOMI, PERRL Ears: Normal External Exam, Normal Canal, Hearing Grossly Normal, Normal TMs Nose: Normal Inspection, Normal Mucosa, No Blood Throat/Mouth: Normal Inspection, Normal Lips, Normal Teeth, Normal Gums, Normal Oropharynx, Normal Voice, No Airway Compromise Head: Atraumatic, Normocephalic Neck: Normal Inspection, Supple, Non-Tender, Full Range of Motion Respiratory/Chest: No Respiratory Distress, Lungs Clear, Normal Breath Sounds, No Accessory Muscle Use, Chest Non-Tender Cardiovascular: Normal Peripheral Pulses, Regular Rate, Rhythm, No Edema, No Gallop, No JVD, No Murmur, No Rub GI/Abdominal: Normal Bowel Sounds, Soft, Non-Tender, No Organomegaly, No Distention, No Abnormal Bruit, No Mass (Female) Exam: Deferred Rectal (Female) Exam: Deferred Back Exam: Other (midline low back pain) Extremities: Normal Inspection, Normal Range of Motion, Non-Tender, No Pedal Edema, Normal Capillary Refill Neurological: Alert, Normal Mood/Affect, Normal Dorsiflexion, CN II-XII Intact, Normal Plantar Flexion, Normal Gait, Normal Reflexes, No Motor/Sensory Deficits, Oriented x 3 Psychiatric: Normal Affect, Normal Mood Skin Exam: Warm, Dry, Intact, Normal Color, No Rash Lymphatic: No Adenopathy Course - Vital Signs Last Recorded V/S: Last Vital Signs Temp 96.9 F 05/23/20 09:34 Pulse 86 05/23/20 09:34 Resp 16 05/23/20 09:34 BP 143/90 H 05/23/20 09:34 Pulse Ox 99 05/23/20 09:34 - Orders/Labs/Meds Orders: Active Orders 24 hr Category Date Time Status Lumbar Spine 2 or 3V [CR] Urgent Exams 05/23/20 11:10 Stop Req CULTURE URINE [RM] Stat Lab 05/23/20 09:23 Received Labs: Laboratory Tests 05/23/20 05/23/20 05/23/20 Range/Units 09:23 09:53 09:53 WBC 5.4 (5.0-10.0) 10^3/uL RBC 4.42 (4.2-5.4) 10^6/uL Hgb 14.3 (12.0-16.0) g/dL Hct 42.7 (37.0-47.0) % MCV 96.6 D (80-100) fL MCH 32.4 (27.0-34.0) pg MCHC 33.5 (33.0-35.0) g/dL Plt Count 211 (150-450) 10^3/uL Neut % (Auto) 62.8 (42.2-75.2) % Lymph % (Auto) 25.8 (20.5-50.1) % [place] % (Auto) 9.2 H (2-8) % Eos % (Auto) 1.8 (1.0-3.0) % Baso % (Auto) 0.4 (0.0-1.0) % Sodium 140 (136-145) mmol/L Potassium 3.8 (3.5-5.1) mmol/L Chloride 104 (98-107) mmol/L Carbon Dioxide 25 (21-32) mmol/L Anion Gap 14.8 H (7-13) mEq/L BUN 21 H (7-18) mg/dL Creatinine 1.05 H (0.55-1.02) mg/dL Est Cr Clr Drug Dosing 50.67 mL/min Estimated GFR (MDRD) 55 BUN/Creatinine Ratio 20.0 (No establ ref range) Glucose 101 H (74-99) mg/dL Calcium 9.0 (8.5-10.1) mg/dL Total Bilirubin 0.2 (0.2-1.0) mg/dL AST 18 (15-37) U/L ALT 51 (14-59) U/L Alkaline Phosphatase 71 (46-116) U/L Total Protein 7.8 (6.4-8.2) g/dL Albumin 3.9 (3.4-5.0) g/dL Globulin 3.9 Albumin/Globulin Ratio 1.0 Urine Color Yellow (YELLOW) Urine Appearance Clear (CLEAR) Urine pH 5.5 (5.0-9.0) Ur Specific [place] 1.025 (1.005-1.030) Urine Protein Negative (NEGATIVE) Urine Glucose (UA) Negative (NEGATIVE) Urine Ketones Negative (NEGATIVE) Urine Occult Blood Negative (NEGATIVE) Urine Nitrite Negative (NEGATIVE) Urine Bilirubin Negative (NEGATIVE) Urine Urobilinogen 0.2 (0.2-1.0) mg/dL Ur Leukocyte Esterase Small H (NEGATIVE) U Hyaline Cast (Auto) Rare Urine RBC 0-5 /HPF Urine WBC 5-10 H (0-5/HPF) /HPF Ur Epithelial Cells Moderate H (NOT SEEN) /HPF Urine Bacteria Moderate H (0-FEW/HPF) /HPF Urine Mucus Few H (NOT SEEN) /LPF Departure - Departure Time of Disposition: 11:31 Disposition: Home, Self-Care 01 Condition: Good Clinical Impression: Low back pain Qualifiers: Chronicity: acute Back pain laterality: midline Sciatica presence: without sciatica Qualified Code(s): M54.5 - Low back pain UTI (urinary tract infection) Qualifiers: Urinary tract infection type: site unspecified Hematuria presence: without hematuria Qualified Code(s): N39.0 - Urinary tract infection, site not specified - Discharge Information *PRESCRIPTION DRUG MONITORING PROGRAM REVIEWED*: No *COPY OF PRESCRIPTION DRUG MONITORING REPORT IN PATIENT JULIAN: No Instructions: Urinary Tract Infection, Adult, [id number], Back Exercises, [id number], Chronic Back Pain, [id number] Forms: ED Department Discharge Additional Instructions: RX: Macrobid, Dexamethasone, Lorazepam Follow up with your primary care facility Return to the ER with any worsening of symptoms Sepsis Event Note (ED) - Evaluation Sepsis Screening Result: No Definite Risk - Focused Exam Vital Signs: Vital Signs Temp Pulse Resp BP Pulse Ox 05/23/20 09:34 96.9 F 86 16 143/90 H 99 - My Orders Last 24 Hours: My Active Orders 05/23/20 09:23 CULTURE URINE [RM] Stat 05/23/20 11:10 Lumbar Spine 2 or 3V [CR] Urgent - Assessment/Plan Last 24 Hours: My Active Orders 05/23/20 09:23 CULTURE URINE [RM] Stat 05/23/20 11:10 Lumbar Spine 2 or 3V [CR] Urgent
== END 2020-05-23 11:30 | disposition home or self-care (01) ==
LOC: DL.ED 09:21
DX: N39.0 Urinary tract infection, site not specified (principal); I12.9 Hypertensive chronic kidney disease with stage 1 through stage 4 chronic kidney disease, or unspecified chronic kidney disease; N18.9 Chronic kidney disease, unspecified; Z88.0 Allergy status to penicillin; Z79.82 Long term (current) use of aspirin; Z79.899 Other long term (current) drug therapy
CPT/HCPCS: 36415; 80053; 81001; 85025; 87086; 99283; 99284

== ENCOUNTER 2023-09-20 10:21 | Emergency (ER) | payer MEDICARE, MEDICAID ==
[2023-09-20 10:41] LABS: BASOPHILS PERCENT AUTO 0.5 % (0.0-1.0); EOSINOPHILS PERCENT AUTO 3.4 % (1.0-3.0); HEMATOCRIT 43.6 % (37.0-47.0); HEMOGLOBIN 14.5 g/dL (12.0-16.0); LYMPHOCYTES PERCENT AUTO 31.5 % (20.5-50.1); MEAN CORPUSCULAR HEMOGLOBIN 32.1 pg (27.0-34.0); MEAN CORPUSCULAR HGB CONC 33.3 g/dL (33.0-35.0); MEAN CORPUSCULAR VOLUME 96.5 fL (80-100); MONOCYTES PERCENT AUTO 10.8 % (2-8); NEUTROPHILS PERCENT AUTO 53.8 % (42.2-75.2); PLATELET COUNT,PLT 238 10^3/uL (150-450); RED BLOOD CELL COUNT 4.52 10^6/uL (4.2-5.4); WHITE BLOOD CELL COUNT,WBC 6.2 10^3/uL (5.0-10.0)
[2023-09-20] MEDS: Aspirin 81 MG Tab.Chew PO ONE (10:41)
[2023-09-20 10:54] VITALS: BP 183/107; PULSE 84
[2023-09-20 11:05] LABS: A/G RATIO 0.7; ALBUMIN 3.5 g/dL (3.4-5.0); ANION GAP 15.3 mEq/L (7-13); BILIRUBIN TOTAL 0.3 mg/dL (0.2-1.0); BUN/CREATININE RATIO 20.6 (No establ ref range); CREATININE 1.07 mg/dL (0.55-1.02); EST CRCL DRUG DOSING (CG) 45.33 mL/min; POTASSIUM,K 4.3 mmol/L (3.5-5.1); PROTEIN TOTAL,TP 8.2 g/dL (6.4-8.2)
== END 2023-09-20 14:04 | disposition home or self-care (01) ==
LOC: DL.ED 10:21
DX: R07.89 Other chest pain (principal); I12.0 Hypertensive chronic kidney disease with stage 5 chronic kidney disease or end stage renal disease; I25.2 Old myocardial infarction; N18.9 Chronic kidney disease, unspecified; Z88.0 Allergy status to penicillin; Z88.8 Allergy status to other drugs, medicaments and biological substances; Z79.82 Long term (current) use of aspirin; Z79.899 Other long term (current) drug therapy; Z90.710 Acquired absence of both cervix and uterus
CPT/HCPCS: 36415; 80053; 84484; 85025; 85379; 93005; 93010; 99284; 99285; A9270-GY

== ENCOUNTER 2024-11-16 09:06 | Emergency (ER) | payer MEDICARE, MEDICAID ==
[2024-11-16 09:36] VITALS: BP 129/81; PULSE 66
[2024-11-16 09:51] LABS: BASOPHILS PERCENT AUTO 0.4 % (0.0-1.0); EOSINOPHILS PERCENT AUTO 3.1 % (1.0-3.0); LYMPHOCYTES PERCENT AUTO 20.8 % (20.5-50.1); MONOCYTES PERCENT AUTO 11.1 % (2-8); NEUTROPHILS PERCENT AUTO 64.6 % (42.2-75.2); PLATELET COUNT,PLT 155 10^3/uL (150-450); RED BLOOD CELL COUNT 4.48 10^6/uL (4.2-5.4); WHITE BLOOD CELL COUNT,WBC 7.1 10^3/uL (5.0-10.0)
[2024-11-16 09:52] LABS: APPEARANCE,URINE CLEAR (CLEAR); GLUCOSE,URINE NEGATIVE (NEGATIVE); OCCULT BLOOD,URINE NEGATIVE (NEGATIVE)
[2024-11-16 10:04] LABS: EPITHELIAL CELLS,URINE FEW /HPF (NOT SEEN)
[2024-11-16 10:13] LABS: A/G RATIO 0.8; ALANINE AMINOTRANSFERASE,ALT 51 U/L (14-59); ASPARTATE AMNIOTRANSFERASE,AST 23 U/L (15-37); BILIRUBIN TOTAL 0.4 mg/dL (0.2-1.0); BLOOD UREA NITROGEN,BUN 25 mg/dL (7-18); CARBON DIOXIDE,CO2 26 mmol/L (21-32); CHLORIDE,CL 105 mmol/L (98-107); CREATININE 1.45 mg/dL (0.55-1.02); EST CRCL DRUG DOSING (CG) 36.07 mL/min; ESTIMATED GFR 42 mL/min (>=60); GLUCOSE RANDOM 117 mg/dL (70-99); POTASSIUM,K 4.7 mmol/L (3.5-5.1); PROTEIN TOTAL,TP 7.9 g/dL (6.4-8.2); SODIUM,NA 137 mmol/L (136-145)
== END 2024-11-16 10:41 | disposition home or self-care (01) ==
LOC: DL.ED 09:06
DX: N39.0 Urinary tract infection, site not specified (principal); N17.9 Acute kidney failure, unspecified; E78.00 Pure hypercholesterolemia, unspecified; I10 Essential (primary) hypertension; Z88.0 Allergy status to penicillin; Z88.8 Allergy status to other drugs, medicaments and biological substances; Z79.899 Other long term (current) drug therapy; Z79.82 Long term (current) use of aspirin; Z90.710 Acquired absence of both cervix and uterus
CPT/HCPCS: 36415; 51798; 80053; 81001; 83690; 83735; 84484; 85025; 87086; 99283-25; 99284

== ENCOUNTER 2025-04-09 11:40 | Emergency (ER) | payer MEDICARE, MEDICAID ==
[2025-04-09] MEDS: Ondansetron 4 MG/2 ML SDV IVPUSH ONE (12:29)
[2025-04-09] MEDS: Sodium Chloride 0.9% 10 ML Syringe FLUSH PRN (12:29)
[2025-04-09 12:31] LABS: BASOPHILS PERCENT AUTO 0.2 % (0.0-1.0); EOSINOPHILS PERCENT AUTO 0.5 % (1.0-3.0); LYMPHOCYTES PERCENT AUTO 9.8 % (20.5-50.1); MONOCYTES PERCENT AUTO 7.8 % (2-8); NEUTROPHILS PERCENT AUTO 81.7 % (42.2-75.2); PLATELET COUNT,PLT 206 10^3/uL (150-450); RED BLOOD CELL COUNT 4.91 10^6/uL (4.2-5.4); WHITE BLOOD CELL COUNT,WBC 9.3 10^3/uL (5.0-10.0)
[2025-04-09 12:54] LABS: A/G RATIO 0.8; ALANINE AMINOTRANSFERASE,ALT 26 U/L (14-59); ASPARTATE AMNIOTRANSFERASE,AST 17 U/L (15-37); BILIRUBIN TOTAL 0.4 mg/dL (0.2-1.0); BLOOD UREA NITROGEN,BUN 11 mg/dL (7-18); CARBON DIOXIDE,CO2 25 mmol/L (21-32); CHLORIDE,CL 105 mmol/L (98-107); CREATININE 1.14 mg/dL (0.55-1.02); GLUCOSE RANDOM 119 mg/dL (70-99); POTASSIUM,K 3.9 mmol/L (3.5-5.1); PROTEIN TOTAL,TP 8.6 g/dL (6.4-8.2); SODIUM,NA 142 mmol/L (136-145)
[2025-04-09 12:58] LABS: APPEARANCE,URINE SLIGHTLY CLOUDY (CLEAR); GLUCOSE,URINE NEGATIVE (NEGATIVE); OCCULT BLOOD,URINE NEGATIVE (NEGATIVE)
[2025-04-09 12:59] LABS: ESTIMATED GFR 55 mL/min (>=60)
[2025-04-09 13:12] LABS: EPITHELIAL CELLS,URINE FEW /HPF (NOT SEEN)
[2025-04-09 13:19] VITALS: BP 141/96; PULSE 73
== END 2025-04-09 13:18 | disposition home or self-care (01) ==
LOC: DL.ED 11:40
DX: K52.9 Noninfective gastroenteritis and colitis, unspecified (principal); I12.9 Hypertensive chronic kidney disease with stage 1 through stage 4 chronic kidney disease, or unspecified chronic kidney disease; N18.9 Chronic kidney disease, unspecified; E78.00 Pure hypercholesterolemia, unspecified; I25.2 Old myocardial infarction; Z90.710 Acquired absence of both cervix and uterus; Z88.0 Allergy status to penicillin; Z88.8 Allergy status to other drugs, medicaments and biological substances; Z79.82 Long term (current) use of aspirin; Z79.899 Other long term (current) drug therapy
CPT/HCPCS: 36415; 80053; 81001; 83690; 83735; 85025; 96374; 99284; J2405